=== PATIENT | female | born 1995 | race Caucasian/White ===

== ENCOUNTER 2016-04-19 10:57 | Emergency (ER) | payer MEDICAID ==
[2016-04-19 11:27] VITALS: BP 131/66; PULSE 87; TEMP 98.8
[2016-04-19 11:28] VITALS: BMI 39.0
--- NOTE | 2016-04-19 11:58 | EDPRACDOC ---
- General Information Stated Complaint: BUG BITE Time Seen by Provider: 04/19/16 11:48 Home Medications: Home Medications Cephalexin Monohydrate [Keflex] 500 mg PO Q6H #28 cap 04/19/16 Ibuprofen 600 mg PO TID #20 tablet 04/19/16 Sulfamethoxazole/Trimethoprim [Bactrim Ds Tablet] 1 tab PO BID #14 tab 04/19/16 Allergies/Adverse Reactions: Allergies Allergy/AdvReac Type Severity Reaction Status Date / Time No Known Allergies Allergy Verified 04/19/16 11:56 - History of Present Illness Onset: LAST NIGHT HPI: PT PRESENTS TODAY WITH BUG BITE TO LEFT UPPER ARM THAT PT NOTICED LAST NIGHT. PT STATES THAT HER ARM WAS HURTING THROUGHOUT THE NIGHT AND THIS MORNING SHE WOKE UP WITH HER ARM SWOLLEN/RED. DENIES FEVER, N/V/D, ABD PAIN. NO PMH/ MEDS. Bite Location: Reports: Arm Bite Cause: Insect Symptoms: Reports: Pain, Redness, Swelling Bite Wound: Reports: Puncture Animal Immunization Status: N\\A Pain Severity: Moderate Shortness of Breath: None Pruritus Severity: None ED Past Medical History - History Reviewed Yes Nurses notes reviewed and agree except as marked EDM Review of Systems - Review of Systems ROS Negative Except as Marked: Yes All systems reviewed and were negative except as marked Constitutional: No Symptoms Reported Respiratory: No Symptoms Reported Cardiovascular: No Symptoms Reported Gastrointestinal: No Symptoms Reported Neurological: No Symptoms Reported Musculoskeletal: Arm Integumentary: Wound - Physical Exam Constitutional: Alert (Awake), No apparent distress Oriented to: Time, Person, Place Last recorded Vital Signs: Last Vital Signs Temp 98.8 F 04/19/16 11:27 Pulse 87 04/19/16 11:27 Resp 20 04/19/16 11:27 BP 131/66 04/19/16 11:27 Pulse Ox 98 04/19/16 11:27 Oxygen Pulse Oxygen Saturation 98 O2 Device Oxygen Flow Rate Fraction of Inspired Oxygen ( FIO2) - HEENT Head: Normal Eye Exam: Normal Neck: Normal, Denies Pain, Midline - Respiratory/Cardiovascular Respiratory: Normal - CTA Cardiovascular: Normal - GI Palpation: Normal Tenderness: Non tender - Musculoskeletal Back: Normal Extremities: Other (NOTED LARGE AREA OF ERYTHEMA, ABOUT 10x10 CM, TO UPPER LEFT ARM WITH CENTRAL AREA OF CLEAR DRAINAGE WHERE "BITE" IS LOCATED; FIRM AREA OF INDURATION ABOUT 5x5 CENTRALLY; NO LYMPHADENOPATHY OR PROXIMAL STREAKING) - Integumentary Skin: Normal Lymphatics: Normal - Neurologic Mood Description: Normal Thought: Coherent Perception: Normal ED Bite Exam - Bite Exam Bite Location: Arm Wound: Puncture Involvement: Partial Extremity Pain Severity: Moderate Involved Limb Distal/Sensory Function: Normal - Additional Information PT HAS NOT ATTEMPTED OUTPATIENT THERAPY; PT AFEBRILE AND IN MINIMAL PAIN; NO PMH OF IMMUNOSUPPRESSION; WILL ATTEMPT OUTPATIENT ORAL ANTIBIOTICS INITIALLY, BUT PT FIRMLY EDUCATED TO RETURN IF CONDITION WORSENS; BODY MARKER USED TO DRAW ERYTHEMA BORDERS. Decision Time to Discharge: 11:56 - Departure Disposition: Home Condition: Stable Final Diagnosis: Cellulitis Qualifiers: Site of cellulitis: extremity Site of cellulitis of extremity: upper extremity Laterality: left Qualified Code(s): L03.114 - Cellulitis of left upper limb Instructions: MRSA (Methicillin Resistant Staphylococcus Aureus) (ED) Education/Counseling Given To: Patient Education/Counseling Given Regarding: Diagnosis, Treatment, Follow Up Referrals: None,No Provider [Primary Care Provider] - One Week [facility] [NonStaff] - One Week Prescriptions: New Cephalexin Monohydrate [Keflex] 500 mg PO Q6H #28 cap Ibuprofen 600 mg PO TID #20 tablet Sulfamethoxazole/Trimethoprim [Bactrim Ds Tablet] 1 tab PO BID #14 tab Additional Instructions: COOL COMPRESSES TO ARM TO HELP DECREASE SWELLING. IF YOU DEVELOP A FEVER OR THIS INFECTION SIGNIFICANTLY SPREADS, YOU MUST RETURN TO THE ED FOR EVALUATION.
== END 2016-04-19 12:03 | disposition home or self-care (01) ==
LOC: ED 10:57 → EDMC 12:03
DX: L03.114 Cellulitis of left upper limb (principal)
CPT/HCPCS: 99282